=== PATIENT | female | born 2000 | race Caucasian/White ===

== ENCOUNTER 2024-05-07 09:23 | Emergency (ER) | payer SELFPAY ==
--- NOTE | 2024-05-07 09:33 | ED.URI ---
HPI - URI/Sore Throat General Chief Complaint: Upper Respiratory Infection Stated Complaint: flu symptoms Time Seen by Provider: 05/07/24 09:34 History of Present Illness HPI Narrative: 23 y/o female presented for c/o headache, body aches, and sore throat x2 days. Started with vomiting today. Endorses decreased appetite and subjective fever/chills. Related Data Home Medications ?Medication ?Instructions ?Recorded ?Confirmed ?Last Taken ?Type No Home Medications 05/07/24 05/07/24 Unknown History Allergies Allergy/AdvReac Type Severity Reaction Status Date / Time No Known Allergies Allergy Verified 05/07/24 09:37 Review of Systems Review of Systems: per HPI Exam Narrative: GENERAL: mildly Ill-appearing, no acute distress. EYES: conjunctivae clear ENT: Mucous membranes moist. TM pearly zacarias with normal light reflex bilaterally; no tragal tenderness. Oropharynx not erythematous without lesions. No drooling, no hoarseness, no trismus, uvula midline. No tripod positioning, hot potato voice, or soft palate swelling. NECK: Supple. No lymphadenopathy CHEST: Clear to auscultation, breath sounds equal. No respiratory distress, speaks in full sentences. HEART: Regular rate and rhythm. No murmur heard. SKIN: Warm, dry, no rash. NEURO: Alert and oriented x3. Course Course Emergency Course: Patient is aware of diagnosis, understands and agrees to treatment plan. Anticipatory guidance given. Patient agrees to follow-up as directed and is aware of reasons to seek care at the emergency department. Portions of this record may have been created with voice recognition software Level of Care: Express Care Visit Vital Signs Vital signs: Vital Signs Temperature 97.5 F L 05/07/24 09:38 Pulse Rate 102 H 05/07/24 09:38 Respiratory Rate 16 05/07/24 09:38 Blood Pressure 117/61 05/07/24 09:38 Pulse Oximetry 98 05/07/24 09:38 Oxygen Delivery Room Air 05/07/24 09:38 Temperature 97.5 F L 05/07/24 09:38 Pulse Rate 102 H 05/07/24 09:38 Respiratory Rate 16 05/07/24 09:38 Blood Pressure 117/61 05/07/24 09:38 Pulse Oximetry 98 05/07/24 09:38 Oxygen Delivery Room Air 12/19/24 09:38 MDM - URI/Sore Throat MDM Narrative Medical decision making narrative: Neg strep flu and covid result reviewed with pt. Advise supportive treatments. Patient is appropriate for outpatient treatment and follow-up. Differential Diagnosis Differential diagnosis: Likely upper respiratory infection, viral infection and pharyngitis Lab Data Labs: Lab Results 05/07/24 Range/Units 09:54 POC Influenza A Ag Negative (Negative) POC Influenza B Ag Negative (Negative) POC SARS CoV-2 Ag Negative (Negative) POC Grp A Strep Screen Negative (Negative) Discharge Plan Discharge Clinical Impression: Viral infection Patient Disposition: Home, Self-Care Condition: Stable Instructions: Antibiotic Form, Viral Syndrome (ED) Additional Instructions: Flu and COVID negative. Rapid strep swab was negative today You will be notified in a few days if the culture comes back positive for strep, and appropriate antibiotics will be called in at that time. if symptoms are due to a viral illness, it is not treated with antibiotics. Viral symptoms can be present for up to 10-14 days. Recommend Flonase spray and Zyrtec for sinus congestion Cough syrup may cause drowsiness; avoid driving or take it at night time. Tylenol every 8 hours as needed for pain/fever Soft foods, cool liquids, warm tea. Gargle with warm saltwater twice a day. Chloraseptic spray and throat lozenges. Rest and stay hydrated. Stay hydrated. Take small sips of fluid containing electrolytes frequently. Clear liquids (broth, jello, tea, sprite, pedialyte), slowly advance [place] foods (bananas, rice, applesauce, toast, crackers) Avoid fatty, greasy, fried or spicy foods. Limit dairy until symptoms are improved. You should go to the hospital if you experience persistent nausea and vomiting that does not resolve and does not allow you to tolerate any food or fluids, fevers, increasing abdominal pain, persistent diarrhea, dizziness, or for any other concerns. Follow up with primary care provider in 3 days. 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
[2024-05-07 09:38] VITALS: BP 117/61; PULSE 102; RESP 16; TEMP 36.4; O2SAT 98
[2024-05-07 09:56] LABS: EDCOVIDSCREEN Negative (Negative); EDINFLUASCREEN Negative (Negative); EDINFLUBSCREEN Negative (Negative); EDSTREPNEGPOS1 Negative (Negative)
== END 2024-05-07 10:08 | disposition home or self-care (01) ==
PROVIDERS: Emergency Provider Nurse Practitioner Family
DX: B34.9 Viral infection, unspecified (principal); Z20.822 Contact with and (suspected) exposure to COVID-19
CPT/HCPCS: 87081; 87426; 87804; 87880; 99203; G0463